=== PATIENT | female | born 1995 | race Caucasian/White ===

== ENCOUNTER 2017-08-24 11:52 | Emergency (ER) | payer SELFPAY ==
[~2017-08-24] VITALS: Ht 149.9 cm; Wt 54.4 kg
[2017-08-24 12:03] VITALS: Ht 149.9 cm; Wt 54.4 kg
[2017-08-24 16:04] VITALS: BP 99/68
== END 2017-08-24 16:04 | disposition home or self-care (01) ==
LOC: ED 11:52
DX: R11.2 Nausea with vomiting, unspecified (principal); R19.7 Diarrhea, unspecified; R10.9 Unspecified abdominal pain
CPT/HCPCS: J2405; J7030

== ENCOUNTER 2018-05-14 08:12 | Emergency (ER) | payer SELFPAY ==
[~2018-05-14] VITALS: Ht 149.9 cm; Wt 54.4 kg
[2018-05-14 08:18] VITALS: Ht 149.9 cm; Wt 54.4 kg
[2018-05-14 08:47] LABS: BASOPHIL % 0.5 % (0-2); PLATELET COUNT 245 x10^3mcL (130-400)
[2018-05-14 08:51] LABS: CALCIUM 8.5 mg/dL (8.5-10.1); CARBON DIOXIDE 30.7 mmol/L (21-32); CHLORIDE SERUM 103 mmol/L (98-107); CREATININE SERUM 0.9 mg/dL (0.6-1.0); GFR1 > 60 mL/min; GLUCOSE SERUM 133 mg/dL (74-106); POTASSIUM SERUM 3.4 mmol/L (3.5-5.1); SODIUM SERUM 144 mmol/L (136-145)
[2018-05-14 08:52] LABS: RED CELL DISTRIBUTION WIDTH 14.7 % (11.5-14.5)
[2018-05-14 12:56] VITALS: BP 120/82
== END 2018-05-14 12:56 | disposition home or self-care (01) ==
LOC: ED 08:12
PROVIDERS: Emergency Medicine
DX: T40.1X1A Poisoning by heroin, accidental (unintentional), initial encounter (principal); F41.9 Anxiety disorder, unspecified; Y92.89 Other specified places as the place of occurrence of the external cause
CPT/HCPCS: J7030; Q0092